=== PATIENT | female | born 1970 ===

== ENCOUNTER 2017-12-14 14:14 | Emergency (ER) | payer MEDICAID, OTHER ==
[2017-12-14 14:14] VITALS: BMI 36.2
[2017-12-14 14:32] VITALS: RESP 18; O2SAT 99
--- NOTE | 2017-12-14 16:05 | RAD ---
PROCEDURE: Left Knee Radiographs. HISTORY: Pain. COMPARISON: None. FINDINGS: BONES: Bone alignment and mineralization are normal. There is no acute displaced fracture or bone destruction. JOINTS: There is mild tricompartmental degenerative osteoarthrosis, worse in the medial compartment with reduced joint spaces, marginal osteophytes and tibial spiking. JOINT EFFUSION: None. OTHER FINDINGS: None. IMPRESSION: No acute fracture or dislocation. Mild degenerative osteoarthrosis, worse in the medial compartment.
--- NOTE | 2017-12-14 16:11 | C.PDOC ---
History Of Present Illness Patient is a 47 y/o female who presents to the ED with a complaint of left knee and lower back pain s/p fall 4 days ago. Patient admits pain has been persistent since incident, but denies taking any pain medications. Notes PSHx of arthroscopy to left knee; denies any LOC. No other physical complaints at this time. - HPI Time Seen by Provider: 12/14/17 14:35 Chief Complaint (Nursing): Trauma History Per: Patient History/Exam Limitations: no limitations Onset/Duration Of Symptoms: Days (4) Injury Occurred (Timing): Days Ago: (4) Location Of Injury: Left: Knee, Posterior: Back (lower) Recent travel outside of the [place]: No Past Medical History Reviewed: Historical Data, Nursing Documentation, Vital Signs Vital Signs: Last Vital Signs Temp 98.4 F 12/14/17 14:22 Pulse 86 12/14/17 14:22 Resp 18 12/14/17 14:22 BP 132/84 12/14/17 14:22 Pulse Ox 99 12/14/17 16:26 - Medical History PMH: Asthma, Depression, Diabetes, HTN Denies: Chronic Kidney Disease Surgical History: - [facility] Procedures APPLICATION OF SPLINT (12/26/12) INJECT/INFUSE NEC (10/24/14) Family History: States: No Known Family Hx - Social History Hx Tobacco Use: No Hx Alcohol Use: No Hx Substance Use: No - Immunization History Hx Tetanus Toxoid Vaccination: No Hx Influenza Vaccination: No Hx Pneumococcal Vaccination: No Review Of Systems Musculoskeletal: Positive for: Back Pain (lower), Leg Pain (left knee) Physical Exam - Physical Exam Appears: Well, Non-toxic, No Acute Distress Oral Mucosa: Moist Back: Paraspinal Tenderness (lumbar area) Extremity: Swelling (mild swelling to left knee), Other (senescence to left anterior knee; no effusion; negative drawer's sign) Neurological/Psych: Oriented x3, Normal Speech, Normal Cognition ED Course And Treatment O2 Sat by Pulse Oximetry: 99 Progress Note: Motrin administered Disposition Counseled Patient/Family Regarding: Studies Performed, Diagnosis, Need For Followup, Rx Given - Disposition Referrals: [facility] [Outside] Disposition: HOME/ ROUTINE Disposition Time: 16:21 Condition: STABLE Additional Instructions: follow up with your doctor in 2 days call to make an appointment take medications as prescribed return to ER if symptoms worsens or progress Prescriptions: Naproxen [Naprosyn] 500 mg PO BID PRN #16 tab PRN Reason: Pain, Moderate (4-7) traMADol [Ultram] 50 mg PO TID PRN #12 tab PRN Reason: Pain, Moderate (4-7) Instructions: Contusion (DC) Forms: General Discharge Instructions, [facility] (Greek), Work Excuse - Clinical Impression Clinical Impression: Contusion - Scribe Statement The provider has reviewed the documentation as recorded by the Scribe Shwetha Perkins All medical record entries made by the Scribe were at my direction and personally dictated by me. I have reviewed the chart and agree that the record accurately reflects my personal performance of the history, physical exam, medical decision making, and the department course for this patient. I have also personally directed, reviewed, and agree with the discharge instructions and disposition.
--- NOTE | 2017-12-14 16:12 | RAD ---
PROCEDURE: Radiographs of the Lumbar Spine. HISTORY: Fall COMPARISON: No prior. FINDINGS: BONES: There is normal alignment of the lumbar vertebral bodies. There is normal lumbar lordosis. There is no acute fracture, spondylolysis or spondylolisthesis. Bone mineralization is normal. DISC SPACES: There is multilevel degenerative disc disease with anterior spurring, reduced disc heights and multilevel facet arthropathy, worse at L1-2. OTHER FINDINGS: There are no pathologic soft tissue calcifications. Both sacroiliac joints are normal. IMPRESSION: No acute fracture, spondylolysis or spondylolisthesis.
[2017-12-14 16:41] VITALS: BP 119/81; PULSE 84; TEMP 98.7
== END 2017-12-14 16:25 | disposition home or self-care (01) ==
LOC: C.ER 14:14
DX: T14.8XXA Other injury of unspecified body region, initial encounter (principal); W19.XXXA Unspecified fall, initial encounter

== ENCOUNTER 2018-01-23 12:53 | Emergency (ER) | payer MEDICAID, OTHER ==
[2018-01-23 13:04] VITALS: BMI 34.0
[2018-01-23 13:08] VITALS: O2SAT 99
--- NOTE | 2018-01-23 14:07 | RAD ---
HISTORY: r/o pna COMPARISON: No prior. TECHNIQUE: Chest PA and lateral FINDINGS: LUNGS: No active pulmonary disease. PLEURA: No significant pleural effusion identified. No pneumothorax apparent. CARDIOVASCULAR: Normal. OSSEOUS STRUCTURES: Degenerative changes. VISUALIZED UPPER ABDOMEN: Normal. OTHER FINDINGS: None. IMPRESSION: No active disease.
[2018-01-23 15:12] LABS: BASO # 0.1 K/uL (0.0-0.2); BASO % 1.4 % (0.0-2.0); EOS # 0.2 K/uL (0.0-0.7); EOS % 2.7 % (0.0-4.0); HEMOGLOBIN 13.8 g/dL (11.0-16.0); LYMPH # 2.9 K/uL (1.0-4.3); LYMPH % 32.3 % (20.0-40.0); MEAN CELL VOLUME 82.1 fL (81.0-99.0); MEAN CORPUSCULAR HEMOGLOBIN 27.4 pg (27.0-31.0); MEAN CORPUSCULAR HGB CONC 33.4 g/dL (33.0-37.0); MEAN PLATELET VOLUME 9.4 fL (7.2-11.7); MONO # 0.4 K/uL (0.0-0.8); NEUT # 5.2 K/uL (1.8-7.0); NEUT % 58.6 % (50.0-75.0); NRBC % 0.2 % (0.0-2.0); RBC 5.02 Mil/uL (3.80-5.20); RED CELL DISTRIBUTION WIDTH 15.5 % (11.5-14.5); WHITE BLOOD COUNT 8.8 K/uL (4.8-10.8)
[2018-01-23 15:29] LABS: ALB/GLOB RATIO 1.6 (1.0-2.1); ALBUMIN 4.9 g/dL (3.5-5.0); CALCIUM 9.5 mg/dl (8.6-10.4); GFR AFRICAN-AMERICAN > 60; GFR NON-AFRICAN AMERICAN > 60
[2018-01-23 15:30] LABS: ALT/SGPT 40 U/L (9-52); AST/SGOT 35 U/L (14-36); BLOOD UREA NITROGEN 14 mg/dL (7-17)
[2018-01-23 15:40] LABS: CK-MB 0.31 ng/mL (0.0-3.38)
--- NOTE | 2018-01-23 16:03 | C.PDOC ---
History Of Present Illness 47-year-old female, presents to the emergency department with c/o "I have a cold." Complaining of productive cough x4 days, associated with congestion, intermittent fever and left sided upper back pain. PT notes the last time she had similar back pain, she was diagnosed with PNA. States she took Advil this morning with minimal relief. Patient denies sob, chest pain, nausea/vomiting, abdominal pain or rash. Time Seen by Provider: 01/23/18 13:29 Chief Complaint (Nursing): Fever History Per: Patient History/Exam Limitations: no limitations Past Medical History Reviewed: Historical Data, Nursing Documentation, Vital Signs Vital Signs: Last Vital Signs Temp 98.9 F 01/23/18 16:10 Pulse 72 01/23/18 16:10 Resp 18 01/23/18 16:10 BP 133/85 01/23/18 16:10 Pulse Ox 99 01/23/18 16:57 - Medical History PMH: Asthma, Depression, HTN Surgical History: - [facility] Procedures APPLICATION OF SPLINT (12/26/12) INJECT/INFUSE NEC (10/24/14) Family History: States: No Known Family Hx - Social History Hx Tobacco Use: No Hx Alcohol Use: No Hx Substance Use: No - Immunization History Hx Tetanus Toxoid Vaccination: Yes Hx Influenza Vaccination: Yes Hx Pneumococcal Vaccination: Yes Review Of Systems Except As Marked, All Systems Reviewed And Found Negative. Constitutional: Negative for: Fever, Chills Cardiovascular: Negative for: Chest Pain, Palpitations Respiratory: Positive for: Cough, Sputum. Negative for: Shortness of Breath Gastrointestinal: Negative for: Nausea, Vomiting Musculoskeletal: Positive for: Back Pain Skin: Negative for: Rash Neurological: Negative for: Weakness, Numbness Physical Exam - Physical Exam Appears: Non-toxic, No Acute Distress Skin: Normal Color, Warm, Dry, No Rash Head: Atraumatic, Normacephalic Eye(s): bilateral: Normal Inspection Nose: Normal Oral Mucosa: Moist Lips: Normal Appearing Neck: Normal ROM, Supple Chest: Symmetrical Cardiovascular: Rhythm Regular, No Murmur Respiratory: Normal Breath Sounds, No Accessory Muscle Use Gastrointestinal/Abdominal: Soft, No Tenderness Back: Other (digitally reproducible Left parathoracic tenderness) Extremity: Normal ROM, No Deformity, No Swelling Neurological/Psych: Oriented x3, Normal Speech ED Course And Treatment - Laboratory Results Result Diagrams: 01/23/18 15:08 01/23/18 15:08 O2 Sat by Pulse Oximetry: 99 (RA) Pulse Ox Interpretation: Normal - Other Rad CXR X-Ray: Viewed By Me, Read By Radiologist Interpretation: HISTORY: r/o pna. COMPARISON: No prior. TECHNIQUE: Chest PA and lateral. FINDINGS: LUNGS: No active pulmonary disease. PLEURA: No significant pleural effusion identified. No pneumothorax apparent. CARDIOVASCULAR: Normal. OSSEOUS STRUCTURES: Degenerative changes. VISUALIZED UPPER ABDOMEN: Normal. OTHER FINDINGS: None. IMPRESSION: No active disease. Progress Note: EKG, Bloodwork, CXR ordered and reviewed. Patient treated with Toradol. On re-evaluation, patient is resting comfortably, and is in no acute distress. No sob. Pain has improved. Afebrile. Patient was instructed to follow up with physician/clinic in 1-2 days for further evaluation. Disposition - Disposition Referrals: Gallito Richardson MD [Medical Doctor] - Disposition: HOME/ ROUTINE Disposition Time: 16:00 Condition: STABLE Additional Instructions: Follow up with primary medical doctor in 1-3 days without fail for further evaluation. Take medications as prescribed. Return to the emergency department at any time if symptoms persist or worsen. Prescriptions: Azithromycin [Zithromax] 250 mg PO DAILY #6 tab Benzonatate [Tessalon Perle] 100 mg PO TID PRN #15 capsule PRN Reason: Cough Instructions: Acute Bronchitis, Adult (DC) Forms: [facility] (Djiboutian) - Clinical Impression Clinical Impression: Bronchitis - Scribe Statement The provider has reviewed the documentation as recorded by the Scribe (Loc Barboza) All medical record entries made by the Scribe were at my direction and personally dictated by me. I have reviewed the chart and agree that the record accurately reflects my personal performance of the history, physical exam, medical decision making, and the department course for this patient. I have also personally directed, reviewed, and agree with the discharge instructions and disposition.
[2018-01-23 16:12] VITALS: BP 133/85; PULSE 72; RESP 18; TEMP 98.9
--- NOTE | 2018-01-25 01:09 | CARD ---
APPROVED REPORT Date of service: 01/23/2018 EKG Measurement Heart [id number] <Conclusion> Normal sinus rhythm Minimal voltage criteria for LVH, may be normal variant Borderline ECG
== END 2018-01-23 16:12 | disposition home or self-care (01) ==
LOC: C.ER 12:53
DX: J40 Bronchitis, not specified as acute or chronic (principal); I10 Essential (primary) hypertension
CPT/HCPCS: 71046; 80053; 82550; 82553; 84484; 85025; 93005; 96374; 99284; J1885

== ENCOUNTER 2018-06-15 15:58 | Emergency (ER) | payer MEDICAID, OTHER ==
[2018-06-15 15:58] VITALS: BMI 34.0
[2018-06-15 16:40] VITALS: PULSE 77
[2018-06-15 17:00] LABS: BASO # 0.1 K/uL (0.0-0.2); BASO % 0.8 % (0.0-2.0); EOS # 0.1 K/uL (0.0-0.7); EOS % 0.8 % (0.0-4.0); HEMOGLOBIN 13.4 g/dL (11.0-16.0); LYMPH # 3.5 K/uL (1.0-4.3); LYMPH % 32.6 % (20.0-40.0); MEAN CORPUSCULAR HEMOGLOBIN 26.6 pg (27.0-31.0); MEAN CORPUSCULAR HGB CONC 33.3 g/dL (33.0-37.0); MEAN PLATELET VOLUME 9.7 fL (7.2-11.7); MONO # 0.7 K/uL (0.0-0.8); MONO % 6.3 % (0.0-10.0); NEUT # 6.4 K/uL (1.8-7.0); NEUT % 59.5 % (50.0-75.0); NRBC % 0.1 % (0.0-2.0); RBC 5.05 Mil/uL (3.80-5.20); WHITE BLOOD COUNT 10.8 K/uL (4.8-10.8)
--- NOTE | 2018-06-15 17:01 | RAD ---
HISTORY: SOB COMPARISON: Chest x-ray performed 01/23/18 TECHNIQUE: Chest, one view. FINDINGS: LUNGS: No focal consolidation. Please note that chest x-ray has limited sensitivity for the detection of pulmonary masses. PLEURA: No significant pleural effusion identified. No definite pneumothorax . CARDIOVASCULAR: Heart size appears within normal limits. No significant atherosclerotic calcification present. OSSEOUS STRUCTURES: No acute osseous abnormality identified. VISUALIZED UPPER ABDOMEN: Unremarkable. OTHER FINDINGS: None. IMPRESSION: No focal consolidation.
[2018-06-15 17:03] LABS: MEAN CELL VOLUME 79.8 fL (81.0-99.0)
--- NOTE | 2018-06-15 17:11 | C.PDOC ---
History Of Present Illness 47 y/o female presents to ED c/o non productive cough and mild wheezing associated with sob since 06/08/18. Patient also c/o intermittent palpitations since last night. Patient admits she has been using albuterol inhaler a lot and denies chest pain, fever, abdominal pain, leg swelling, recent travel or any other complaints at this time. Time Seen by Provider: 06/15/18 16:14 Chief Complaint (Nursing): Palpitations History Per: Patient History/Exam Limitations: no limitations Onset/Duration Of Symptoms: Days Current Symptoms Are (Timing): Still Present Past Medical History Reviewed: Historical Data, Nursing Documentation, Vital Signs Vital Signs: Last Vital Signs Temp 98 F 06/15/18 16:15 Pulse 77 06/15/18 16:39 Resp 16 06/15/18 16:39 BP 116/79 06/15/18 16:39 Pulse Ox 100 06/15/18 16:39 - Medical History PMH: Asthma, Depression, Diabetes, HTN Surgical History: - [facility] Procedures APPLICATION OF SPLINT (12/26/12) INJECT/INFUSE NEC (10/24/14) Family History: States: No Known Family Hx - Social History Hx Tobacco Use: No Hx Alcohol Use: No Hx Substance Use: No - Immunization History Hx Tetanus Toxoid Vaccination: Yes Hx Influenza Vaccination: Yes Hx Pneumococcal Vaccination: Yes Review Of Systems Constitutional: Negative for: Fever, Chills Cardiovascular: Positive for: Palpitations. Negative for: Chest Pain Respiratory: Positive for: Cough, Shortness of Breath Gastrointestinal: Negative for: Nausea, Vomiting Skin: Negative for: Rash Physical Exam - Physical Exam Appears: Non-toxic, No Acute Distress Skin: Warm, Dry, No Rash Head: Atraumatic, Normacephalic Eye(s): bilateral: Normal Inspection Oral Mucosa: Moist Neck: Normal ROM, Supple Cardiovascular: Rhythm Regular Respiratory: Normal Breath Sounds, No Accessory Muscle Use, No Rales, No Rhonch i, No Wheezing Gastrointestinal/Abdominal: Soft, No Tenderness, No Guarding, No Rebound Extremity: Normal ROM, No Pedal Edema, Capillary Refill (<2 seconds) Neurological/Psych: Oriented x3, Normal Speech (Speaking in full sentences), Normal Cognition ED Course And Treatment - Laboratory Results Result Diagrams: 06/15/18 16:57 11/29/18 16:57 ECG: Interpreted By Me, Viewed By Me ECG Rhythm: Sinus Rhythm Interpretation Of ECG: Normal access, No acute ST/T wave changes Rate From EC (BPM) O2 Sat by Pulse Oximetry: 100 (RA) Progress Note: Blood work, Thyroid, TSh, CXR ordered. Disposition Counseled Patient/Family Regarding: Studies Performed, Diagnosis, Need For Followup, Rx Given - Disposition Referrals: Gallito Richardson MD [Medical Doctor] - Disposition: HOME/ ROUTINE Disposition Time: 18:10 Condition: STABLE Additional Instructions: FOLLOW UP WITH YOUR DOCTOR IN 1-2 DAYS USE MEDICATIONS DIRECTED RETURN TO ER IF SYMPTOMS WORSEN Prescriptions: Benzonatate [Tessalon Perles] 100 mg PO BID PRN #15 sgl PRN Reason: Cough Ciclopirox [Penlac] 6.6 ml TP HS #1 solution predniSONE [predniSONE Tab] 40 mg PO DAILY #6 tab Instructions: Asthma, Adult (DC) Forms: [employer] (Mohawk) Print Language: SERBIAN - Clinical Impression Clinical Impression: Asthma exacerbation, Onychomycosis - Scribe Statement The provider has reviewed the documentation as recorded by the Raeibleslie Allen All medical record entries made by the Scribe were at my direction and personally dictated by me. I have reviewed the chart and agree that the record accurately reflects my personal performance of the history, physical exam, medical decision making, and the department course for this patient. I have also personally directed, reviewed, and agree with the discharge instructions and disposition.
[2018-06-15 17:13] LABS: ALB/GLOB RATIO 1.3 (1.0-2.1); ALBUMIN 4.7 g/dL (3.5-5.0); ALT/SGPT 31 U/L (9-52); AST/SGOT 29 U/L (14-36); BLOOD UREA NITROGEN 16 mg/dL (7-17); CALCIUM 9.5 mg/dl (8.6-10.4); GFR NON-AFRICAN AMERICAN > 60
[2018-06-15] MEDS ORDERED: Albuterol 0.083% Inhal Sol (2.5 mg/3 mL) UD IH STA (17:18)
[2018-06-15 17:25] LABS: CK-MB 0.88 ng/mL (0.0-3.38)
[2018-06-15] MEDS ORDERED: Albuterol 0.083% Inhal Sol (2.5 mg/3 mL) UD ONE (17:46)
[2018-06-15 18:44] VITALS: BP 121/82; RESP 18; TEMP 97.9; O2SAT 97
--- NOTE | 2018-06-16 12:37 | CARD ---
APPROVED REPORT Date of service: 06/15/2018 EKG Measurement Heart [id number] <Conclusion> Normal sinus rhythm Minimal voltage criteria for LVH, may be normal variant Borderline ECG
== END 2018-06-15 18:43 | disposition home or self-care (01) ==
LOC: C.ER 15:58
DX: J45.901 Unspecified asthma with (acute) exacerbation (principal)
CPT/HCPCS: 71045; 80053; 82550; 82553; 84443; 84484; 85025; 93005; 94640; 96374; 99284; J2930

== ENCOUNTER 2018-09-16 12:16 | Emergency (ER) | payer MEDICAID, OTHER ==
[2018-09-16 12:17] VITALS: BMI 34.0
[2018-09-16 12:32] VITALS: TEMP 98; O2SAT 99
--- NOTE | 2018-09-16 13:04 | C.PDOC ---
History Of Present Illness 48 y/o female pt with hx of asthma and HTN presents to the ER c/o URI sx for x5 days. Associated sx includes hoarse voice, fever, sore throat and cough. Despite being allergic to penicllin, pt took a couple of tablets for her sx. Pt uses advair and ventolin. Time Seen by Provider: 09/16/18 12:21 Chief Complaint (Nursing): Cough, Cold, Congestion History Per: Patient History/Exam Limitations: no limitations Onset/Duration Of Symptoms: Days (x5) Current Symptoms Are (Timing): Still Present Past Medical History Reviewed: Historical Data, Nursing Documentation, Vital Signs Vital Signs: Last Vital Signs Temp 98 F 09/16/18 12:26 Pulse 98 H 09/16/18 12:26 Resp 18 09/16/18 12:26 BP 135/84 09/16/18 12:26 Pulse Ox 99 09/16/18 12:26 - Medical History PMH: Asthma, Depression, Diabetes, HTN Surgical History: - [facility] Procedures APPLICATION OF SPLINT (12/26/12) INJECT/INFUSE NEC (10/24/14) Family History: States: No Known Family Hx - Social History Hx Tobacco Use: No Hx Alcohol Use: Yes Hx Substance Use: No - Immunization History Hx Tetanus Toxoid Vaccination: Yes Hx Influenza Vaccination: Yes Hx Pneumococcal Vaccination: Yes Review Of Systems Constitutional: Positive for: Fever. Negative for: Chills, Weakness Eyes: Negative for: Redness, Other (scleral icterus ) ENT: Positive for: Throat Pain. Negative for: Mouth Swelling Cardiovascular: Negative for: Chest Pain Respiratory: Positive for: Cough. Negative for: Shortness of Breath Gastrointestinal: Negative for: Nausea, Vomiting, Diarrhea Genitourinary: Negative for: Dysuria, Hematuria Musculoskeletal: Negative for: Back Pain Skin: Negative for: Rash Neurological: Negative for: Weakness, Numbness, Dizziness Physical Exam - Physical Exam Appears: Well, Non-toxic, No Acute Distress Skin: Normal Color, Warm, No Rash Head: Atraumatic, Normacephalic Eye(s): bilateral: Normal Inspection (no scleral icterus ), PERRL, EOMI Ear(s): Left: TM Erythema (no drainage or swelling ), Bilateral: Other (no post or pre-auricular node or enlargment ) Nose: Normal Oral Mucosa: Moist (no swelling or injection ) Throat: Normal, Exudate, Other (swelling; airway patent ) Neck: Normal ROM, Supple, No Other (cervicle lymph node ) Chest: Symmetrical Respiratory: No Accessory Muscle Use, Other (normal inspiratory effort ) Gastrointestinal/Abdominal: Soft, No Distention Back: Other (ambulating with steady upright gait ) Extremity: Normal ROM Extremity: Bilateral: Atraumatic Pulses: Left Radial: Normal (2+), Right Radial: Normal (2+) Neurological/Psych: Oriented x3, Other (cranial grossly intact ) ED Course And Treatment O2 Sat by Pulse Oximetry: 99 (RA) Pulse Ox Interpretation: Normal Medical Decision Making Medical Decision Making: Pt recommended to take ibuprofen for her fever and body aches and instructed to f/u with PMD Disposition Counseled Patient/Family Regarding: Diagnosis, Need For Followup, Rx Given - Disposition Disposition: HOME/ ROUTINE Disposition Time: 13:02 Condition: STABLE Prescriptions: Cefdinir [Omnicef] 300 mg PO BID 10 Days ml Instructions: Sore Throat, Adult (DC), Upper Respiratory Infection (ED) Forms: [employer] (Danish), General Discharge Instructions - Clinical Impression Clinical Impression: Upper respiratory infection, Acute tonsillitis - PA / STERE[employer] COMPILER / Resident Statement MD/ has reviewed & agrees with the documentation as recorded. - Scribe Statement The provider has reviewed the documentation as recorded by the Anahy Brand Do All medical record entries made by the Raeibleslie were at my direction and personally dictated by me. I have reviewed the chart and agree that the record accurately reflects my personal performance of the history, physical exam, medical decision making, and the department course for this patient. I have also personally directed, reviewed, and agree with the discharge instructions and disposition.
[2018-09-16 13:10] VITALS: BP 124/86; PULSE 75; RESP 20
== END 2018-09-16 13:12 | disposition home or self-care (01) ==
LOC: C.ER 12:16
DX: J03.90 Acute tonsillitis, unspecified (principal)

== ENCOUNTER 2018-11-14 11:26 | Emergency (ER) | payer MEDICAID, OTHER ==
[2018-11-14 11:48] VITALS: BMI 36.8
[2018-11-14] MEDS ORDERED: Naproxen 550 mg Tab PO STA (13:06)
--- NOTE | 2018-11-14 13:10 | C.PDOC ---
History Of Present Illness 48-year-old female presents to the ED for evaluation of left knee pain and swelling which began approx six days ago. Patient reports history of a meniscus injury and arthroscopy surgery in the same knee [place] [address] Wakefield. She states that she has not followed up with him regarding this complaint because he does not take her insurance any more. Patient states her pain worsens with ambulation. She denies any new injuries, fever/chills, rashes , calf tenderness, SOB. Time Seen by Provider: 11/14/18 12:59 Chief Complaint (Nursing): Lower Extremity Problem/Injury History Per: Patient History/Exam Limitations: no limitations Onset/Duration Of Symptoms: Days Current Symptoms Are (Timing): Still Present Severity: Mild Additional History Per: Patient Past Medical History Reviewed: Historical Data, Nursing Documentation, Vital Signs Vital Signs: Last Vital Signs Temp 97.9 F 11/14/18 11:49 Pulse 100 H 11/14/18 11:49 Resp 17 11/14/18 11:49 BP 116/82 11/14/18 11:49 Pulse Ox 97 11/14/18 11:49 Primary Care Provider: Gallito Richardson - Medical History PMH: Asthma, Depression, Diabetes, HTN Surgical History: - [facility] Procedures APPLICATION OF SPLINT (12/26/12) INJECT/INFUSE NEC (10/24/14) Family History: States: No Known Family Hx - Social History Hx Tobacco Use: No Hx Alcohol Use: Yes Hx Substance Use: No - Immunization History Hx Tetanus Toxoid Vaccination: Yes (2017) Hx Influenza Vaccination: Yes (End 2017) Hx Pneumococcal Vaccination: Yes (Early 2017) Review Of Systems Constitutional: Negative for: Fever, Chills Respiratory: Negative for: Shortness of Breath Musculoskeletal: Positive for: Other (left knee pain ). Negative for: Back Pain Skin: Negative for: Rash Neurological: Negative for: Weakness, Numbness Physical Exam - Physical Exam Appears: Well, Non-toxic, Other (in mild pain ) Skin: Normal Color, Warm, Dry Head: Normacephalic Oral Mucosa: Moist Cardiovascular: Rhythm Regular Respiratory: Normal Breath Sounds, No Rales, No Rhonchi, No Wheezing Extremity: No Normal ROM (decreased flexion secondary to pain ), Tenderness (at the medial aspect of right knee ), No Calf Tenderness, Capillary Refill (< 2 sec all digits ), No Deformity, Swelling (mild, at the medial aspect of the left knee ), No Other (no palpable popliteal masses) Pulses: Left Dorsalis Pedis: Normal, Right Dorsalis Pedis: Normal Neurological/Psych: Oriented x3, Normal Sensation ED Course And Treatment O2 Sat by Pulse Oximetry: 97 (on RA) Pulse Ox Interpretation: Normal Progress Note: Left knee XR ordered and reviewed. Naproxen PO given. Patient states she is unable to see prior orthopedic surgeon Dr. Wakefield as he no longer takes her insurance. Patient provided with knee brace and crutches (instruction given by PT). She was instructed to f/u with orthopedics within 1 week, and understands she should return to ED if symptoms worsen. Reevaluation Time: 13:40 Reassessment Condition: Improved Disposition Counseled Patient/Family Regarding: Studies Performed, Diagnosis, Need For Followup, Rx Given - Disposition Referrals: Taz Carter MD [Staff Provider] - Disposition: HOME/ ROUTINE Disposition Time: 13:40 Condition: STABLE Additional Instructions: FOLLOW UP WITH ORTHOPEDICS WITHIN 1 WEEK USE MEDICATION NEEDED FOR PAIN ELEVATE LEG MUCH POSSIBLE RETURN TO ER IF SYMPTOMS WORSEN Prescriptions: Ibuprofen [Motrin Tab] 600 mg PO Q6 PRN #30 tab PRN Reason: fever/pain Instructions: Knee Sprain (DC) Forms: [facility] (Vietnamese), Work Excuse Print Language: NICARAGUAN - Clinical Impression Clinical Impression: Left knee sprain, Soft tissue injury - Scribe Statement The provider has reviewed the documentation as recorded by the Scribe (Jessie Staley) Provider Attestation: All medical record entries made by the Scribe were at my direction and personally dictated by me. I have reviewed the chart and agree that the record accurately reflects my personal performance of the history, physical exam, medi jos decision making, and the department course for this patient. I have also personally directed, reviewed, and agree with the discharge instructions and disposition.
[2018-11-14] MEDS ORDERED: Naproxen 550 mg Tab PO ONE (13:18)
[2018-11-14 14:32] VITALS: BP 109/76; PULSE 74; RESP 18; TEMP 98.6
--- NOTE | 2018-11-14 14:53 | RAD ---
Date of service: 11/14/2018 PROCEDURE: Left Knee Radiographs. HISTORY: Pain. COMPARISON: 12/14/2017. TECHNIQUE: 3 views obtained. FINDINGS: BONES: Bone alignment and mineralization are normal. There is no acute displaced fracture or bone destruction. JOINTS: There is mild tricompartmental degenerative osteoarthrosis with reduced joint spaces, marginal osteophytes and tibial spiking, worse in the medial compartment. JOINT EFFUSION: There is a small suprapatellar joint effusion. OTHER FINDINGS: None. IMPRESSION: No acute fracture or dislocation. Mild tricompartmental degenerative osteoarthrosis, worse in the medial compartment. Small suprapatellar joint effusion.
[2018-11-15 00:12] VITALS: O2SAT 97
== END 2018-11-14 14:32 | disposition home or self-care (01) ==
LOC: C.ER 11:26
DX: S83.92XA Sprain of unspecified site of left knee, initial encounter (principal); X58.XXXA Exposure to other specified factors, initial encounter; E11.9 Type 2 diabetes mellitus without complications; I10 Essential (primary) hypertension
CPT/HCPCS: 73562; 97116; 97161; 99284; G8978; G8979; G8980